=== PATIENT | male | born 1975 | race Caucasian/White ===

== ENCOUNTER 2017-11-29 05:59 | Emergency (ER) | payer OTHER ==
--- NOTE | 2017-11-29 06:45 | EDM.PDOC ---
<OfficerMatt - Last Filed: 11/29/17 06:43> ED HPI GENERAL MEDICAL PROBLEM - General Chief Complaint: Genitourinary Problem Stated Complaint: KIDNEY STONES? Time Seen by Provider: 11/29/17 06:33 Source of Information: Reports: Patient, Family, RN Notes Reviewed History Limitations: Reports: No Limitations - History of Present Illness INITIAL COMMENTS - FREE TEXT/NARRATIVE: 41-year-old gentleman presents to the emergency department today complaint of right flank pain, he is a history of spina bifida and from that he has had multiple complications and abdominal surgeries. He does self catheter has a history of multiple urinary tract infections as well as nephrolithiasis. He states this particular event started a couple days ago feels very much like a kidney stone no fevers is nauseated Right Flank Pain Score (Numeric/FACES): 4 - Related Data Allergies Allergy/AdvReac Type Severity Reaction Status Date / Time latex Allergy Rash Verified 11/29/17 06:14 Home Meds: Home Meds Esomeprazole [NexIUM] 20 mg PO DAILY 11/29/17 [History] Potassium Citrate [Urocit-K] 10 meq PO 11/29/17 [History] Past Medical History HEENT History: Reports: Impaired Vision Cardiovascular History: Reports: Blood Clots/VTE/DVT Gastrointestinal History: Reports: GERD Genitourinary History: Reports: Urostomy, Other (See Below) Other Genitourinary History: does self catheterization Musculoskeletal History: Reports: Other (See Below) Other Musculoskeletal History: spina bifida Neurological History: Reports: Other (See Below) Other Neuro History: shunt in head from baby and then surgery re-done about ten years ago Hematologic History: Reports: Blood Transfusion(s) - Infectious Disease History Infectious Disease History: Reports: Other (See Below) Other Infectious Disease History: last hospitalization had home IV antibiotics and saw ID doctor - Past Surgical History Head Surgeries/Procedures: Reports: Shunt HEENT Surgical History: Reports: Eye Surgery Other HEENT Surgeries/Procedures: for both lazy eyes GI Surgical History: Reports: Appendectomy, EGD, Small Bowel Other GI Surgeries/Procedures: possible small bowel resection Other Male Surgeries/Procedures: augmented bladder, perineal urethostomy, several cystoscopies Neurological Surgical History: Reports: Sacral Spine Social & Family History - Tobacco Use Smoking Status *Q: Never Smoker - Caffeine Use Caffeine Use: Reports: Soda - Recreational Drug Use Recreational Drug Use: No ED ROS GENERAL - Review of Systems Review Of Systems: See Below Constitutional: Denies: Fever, Chills HEENT: Reports: No Symptoms Respiratory: Reports: No Symptoms Cardiovascular: Reports: No Symptoms GI/Abdominal: Reports: Nausea : Reports: Flank Pain Musculoskeletal: Reports: No Symptoms Skin: Reports: No Symptoms ED EXAM, RENAL/ - Physical Exam Exam: See Below Exam Limited By: No Limitations General Appearance: Alert, WD/WN, No Apparent Distress Respiratory/Chest: No Respiratory Distress, Lungs Clear, Normal Breath Sounds, No Accessory Muscle Use Cardiovascular: Regular Rate, Rhythm, No Murmur GI/Abdominal: Soft, Tender (Tender along the right flank) Course - Vital Signs Last Recorded V/S: Last Vital Signs Temp 37.6 C 11/29/17 06:11 Pulse 116 H 11/29/17 06:11 Resp 16 11/29/17 06:11 BP 163/113 H 11/29/17 06:11 Pulse Ox 95 11/29/17 06:11 - Orders/Labs/Meds Orders: Active Orders 24 hr Category Date Time Status Abdomen Pelvis wo Cont [CT] Stat Exams 11/29/17 06:42 Taken CULTURE URINE [RM] Stat Lab 11/29/17 07:04 Ordered UA W/MICROSCOPIC [URIN] Urgent Lab 11/29/17 06:30 Ordered Labs: Laboratory Tests 11/29/17 Range/Units 06:30 Urine Color Yellow Urine Appearance Cloudy Urine pH 8.0 (4.5-8.0) Ur Specific [address] 1.010 (1.008-1.030) Urine Protein Negative (NEGATIVE) mg/dL Urine Glucose (UA) Normal (NEGATIVE) mg/dL Urine Ketones Negative (NEGATIVE) mg/dL Urine Occult Blood Moderate (NEGATIVE) Urine Nitrite Negative (NEGAITVE) Urine Bilirubin Negative (NEGATIVE) Urine Urobilinogen Normal (NORMAL) mg/dL Ur Leukocyte Esterase Large (NEGATIVE) Urine RBC 20-30 H (0-5) Urine WBC Packed H (0-5) Ur Epithelial Cells Not seen Amorphous Sediment Not seen Urine Bacteria Many Urine Mucus Few Meds: Medications Discontinued Medications Generic Name Dose Route Start Last Admin Trade Name Freq PRN Reason Stop Dose Admin Trimethoprim/Sulfamethoxazole 1 tab 11/29/17 07:02 11/29/17 07:08 Septra Ds PO 05/03/18 07:03 1 tab ONETIME ONE Administration Departure - Departure Disposition: Home, Self-Care 01 Clinical Impression: UTI, Urinary tract infectious disease - Discharge Information Referrals: PCP,None [Primary Care Provider] - Forms: ED Department Discharge - My Orders Last 24 Hours: My Active Orders 11/29/17 07:04 CULTURE URINE [RM] Stat - Assessment/Plan Last 24 Hours: My Active Orders 11/29/17 07:04 CULTURE URINE [RM] Stat <Wesly Coyle G - Last Filed: 11/29/17 08:11> Course - Radiology Interpretation Free Text/Narrative:: No obstructing kidney stones on CT KUB CT Results Date: 11/29/17 CT Results Time: 08:05 Departure - Departure Time of Disposition: 08:15 Condition: Fair
[2017-11-29] MEDS ORDERED: Sulfamethoxazole/Trimethoprim 800-160 MG Tab PO ONE (07:02)
== END 2017-11-29 08:48 | disposition home or self-care (01) ==
LOC: JP.ED 05:59
DX: N39.0 Urinary tract infection, site not specified (principal); Z91.040 Latex allergy status
CPT/HCPCS: 74176; 81001; 87086; 87088; 87186; 99284; A9270